=== PATIENT | male | born 1945 | race Caucasian/White ===

== ENCOUNTER 2018-06-03 11:32 | Inpatient (IN) | payer OTHER, MEDICARE ==
[~2018-06-03] VITALS: Ht 182.9 cm; Wt 127.0 kg
--- NOTE | 2018-06-03 14:59 | NUR ---
PATIENT HERE TODAY WITH HIS FOR PREADMISSION APPOINTMENT. HE IS SCHEDULED TO HAVE A LEFT TOTAL HIP ARTHROPLASTY DONE ON 06/14/18. HIS SAL[facility]AS WILL BE HERE TO TRANSPORT HIM HOME WHEN HE IS DISCHARGED. THEY HAVE ONE SMALL STEP INTO THE HOME AND ONE STEP INSIDE THE HOME. THERE IS A TUB/SHOWER WITH HAND HELD SHOWER HEAD. HE DOES NOT HAVE A FRONT WHEELED WALKER, SHOWER BENCH OR RAISED TOILET SEAT. WE SPOKE ABOUT THE REASONS HE WILL NEED THESE ITEMS AND THEY WILL LOOK INTO OBTAINING THEM BEFORE SURGERY. THEY LIVE IN [place] AND WOULD LIKE PHYSICAL THERAPY SET UP WITH [facility]. THIS INFORMATION WILL BE SENT TO DR COATS OFFICE AND CASE MANAGEMENT FOR FUTHER FOLLOW UP.
[2018-06-14] MEDS ORDERED: DICLOFENAC SODI75 MG PO (06:10)
[2018-06-14] MEDS ORDERED: CARBIDOPA-LEVO1 EAC1 PO (06:11)
[2018-06-14] MEDS ORDERED: ATORVASTATIN CA20 MG PO (06:11)
[2018-06-14] MEDS ORDERED: FUROSEMIDE20 MG PO (06:12)
[2018-06-14] MEDS ORDERED: AMANTADINE100 M1 PO (06:12)
[2018-06-14] MEDS ORDERED: VITAMIN C1000 M2 PO (06:13)
[2018-06-14] MEDS ORDERED: IRON325 M1 PO (06:13)
--- NOTE | 2018-06-14 10:34 | NUR ---
[facility] ARRIVED IN PACU AWAKE WITH NO C/O'S. ROSEY DRSG INTACT TO L HIP. ABDUCTOR PILLOW IN PLACE. ON-Q PUMP AT 6ML/HR PER DR ORDERS AND NO CLAMP PRESENT. 929 PELVIS XRAY DONE. 45 OXYGEN REMOVED. SATS 95% ON RA. ENCOURAGED COUGH, DEEP BREATHING. NO C/O'S. 1015 PT RESTING WITH NO C/O'S. CRYO CUFF TO L HIP. 1019 WILL HOLD PT IN PACU TILL ROOM AVAILABLE AND CHANGE TO PHASE II.
--- NOTE | 2018-06-14 11:15 | NUR ---
LE 1019 PT DC'D FROM PACU TO PHASE II. OXYGEN SATS DECREASED TO 88% ON RA. 02 AT 2L VIA NC PLACED WITH SATS INCREASING TO 95%. ENCOURAGED PT TO COUGH, DEEP BREATH. NO C/O'S. 1107 TO DS TO WAIT FOR ROOM.
--- NOTE | 2018-06-14 12:07 | NUR ---
PT ARRIVED FROM DAY SURGERY WITH IRINA NEWBY. PT WAS HELD IN DAY SURGERY WAITING FOR ROOMS TO BECOME AVAILABLE ON THE FLOOR. PT WAS AWAKE AND ALERT WITH HIS AT BEDSIDE. 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 PT REPORTS "BETTER PAIN THAN BEFORE SURGERY!" SENSATION IS INTACT ABOVE HIP, PT ABLE TO WIGGLE TOES ON BOTH FEET. PT HAS ONE SPOT THAT "FEELS LIKE FREZER BURN" UNDER CYRO-CUFF. WASHCLOTH APPLIED UNDER THE CUFF TO PROTECT THE SKIN. CYROCUFF, ON-Q SET TO 6, ROSEY DRESSING SEALED, JUSTIN HOSE IN PLACE, ABDUCTOR PILLOW IN PLACE. NO NAUSEA, PT IS EATING JELLO AT THIS TIME. TOLEATING WATER WELL.
--- NOTE | 2018-06-14 12:14 | OR ---
[facility] [address], [place] [address] Signed DATE OF OPERATION: 06/14/2018 SURGEON: Daev Song MD PREOPERATIVE DIAGNOSIS: Degenerative joint disease, left hip with avascular necrosis. POSTOPERATIVE DIAGNOSIS: Degenerative joint disease, left hip with avascular necrosis. PROCEDURE PERFORMED: Left total hip arthroplasty. IMAGING NURSE: JITENDRA Lynne ANESTHESIA: Spinal. BLOOD LOSS: 125 mL. IMPLANTS: [place] Accolate 2 size 8, 60 mm cup, and a +2.5 ceramic head. BRIEF HISTORY: Dick is a 73-year-old gentleman who had fairly sudden onset of severe pain. He had undergone intra-articular injection just prior to this. Repeat radiographs showed collapse of the femoral head. The risks and benefits of operative treatment were discussed with him. He elected to proceed. Once the consent was obtained, he was taken to the operating room. After adequate anesthesia was placed on the operating room table, all downside pressure points well padded. He was placed in right lateral decubitus position. Axillary roll was placed and the hip was prepped and draped in a standard sterile fashion. His hip was quite stiff as were both knees. The hip was approached through an anterior lateral approach. A 6 inch incision was carried through skin and subcutaneous tissue and the IT band was divided longitudinally. The vastus lateralis was split from the tip of the trochanter distally and elevated in a subperiosteal manner around the level of the lesser trochanter. The gluteus medius was split bluntly. Gluteus minimus and capsule were split sharply from the tip of the trochanter to the acetabular head were without it was. Because of the notching in the Electronically Signed By: DAVE SONG MD 06/14/18 1214 PATIENT NAME: NAOMI CURTIS OPERATIVE REPORT DATE OF : 49 REPORT #: [id number] PHYSICIAN: DAVE SONG MD PCP: KOMAL CAMEJO REPORT IS CONFIDENTIAL AND NOT TO BE RELEASED WITHOUT AUTHORIZATION [facility] [address] [place], [place] [address] Signed femoral head, it was a little difficult to tell for sure. The capsule on the anterior portion was then elevated off the femoral neck all the way around. Once this was completed, the hip was externally rotated. The femoral neck cut was made in situ one fingerbreadth above the lesser trochanter. Using the Schanz pin, the femoral head was then removed from the acetabulum. Periacetabular soft tissue was removed. The acetabulum was reamed starting with a 50 went up to 60. The 60 cup was found to be well fitting. It was impacted in position, 20 degrees of anteversion, 45 degrees of abduction. The two 6.5 mm screws were placed in the posterior superior quadrant. The liner was then impacted in position finally. The attention was then turned to proximal femur. The proximal femur was opened using the renettaie cutter followed by the long reamer. It was then sequentially broached up to an 8. First radiograph of the 8 showed that it was a little ill fitting. We then further rasped and broached until the 8 was well fitting and there was no motion in it. The trial reduction, the 2nd time showed excellent leg lengths, good stability with a standard offset neck and +2.5 mm head. These components were then selected and the stem was impacted until it was well-seated in the femur. The +2.5 ceramic head was then placed on it and hip was reduced taken through range of motion with 100 degrees of flexion with 25-30 of internal-external rotation. Leg lengths were found to be equal. The wound was copiously irrigated with antibiotic solution and Irrisept. The capsule was then closed using #1 Vicryl. The On-Q pump was placed in a supracapsular position under the vastus and gluteus layers. The vastus and IT band were closed in layers. The fat was closed in layer and the subcutaneous tissue in layer. The skin was closed using Dermabond mesh and he was placed in a ROSEY wound VAC dressing, awakened, and taken to the recovery room in satisfactory condition. All sponge, needle, and instrument counts were correct. He was placed in abduction brace. Dave Song MD BA/MODL /[id number] Copies: ~ Electronically Signed By: DAVE SONG MD 06/14/18 1214 PATIENT NAME: NAOMI CURTIS OPERATIVE REPORT DATE OF : 49 REPORT #: [id number] PHYSICIAN: DAVE SONG MD PCP: KOMAL CAMEJO REPORT IS CONFIDENTIAL AND NOT TO BE RELEASED WITHOUT AUTHORIZATION
--- NOTE | 2018-06-14 18:29 | NUR ---
PT S/P LEFT TOTAL HIP. PT UP TO WALK WITH PHYSICAL THERAPY, REQUIRED 2-3 HEAVY ASSIT WITH MULTIPLE REST BREAKS. PT STATED THAT HE HAD NO PAIN, HIS ARMS WERE "SO WEAK USING THE WALKER". PT WALKED AROUND THE BED WITH MULTIPLE REST BREAKS SITTING ON THE BSC NEEDED. PT REPORTED NO PAIN EVEN DURING THERAPY. SMALL AMT OF DRAINAGE NOTED ON ROSEY DRESSING AFTER PHYSICAL THERAPY, OUTLINED. PT ABLE TO WIGGLE TOES AND CMS IS INTACT. NO PAIN. NO NAUSEA, NO ITCHING. PT HAS SY, DRAINING CLEAR YELLOW URINE.
--- NOTE | 2018-06-14 19:10 | NUR ---
SHIFT REPORT RECIEVED. PATIENT RESTING IN BED WATCHING TV. DENIED PAIN AT THIS TIME. ROSEY DRESSING VISUALIZED, DRAINAGE WITHIN THE OUTLINE DRAWN BY DAY RN. MODERATE AMOUNT OVERALL. ROSEY PUMP AND ON-Q IN PLACE, GREEN LIGHT NOTED. CRYO IN PLACE WITH SUFFICENT ICE. IV FLUIDS INFUSING, SITE WNL. CALL LIGHT IN REACH.
--- NOTE | 2018-06-14 21:00 | NUR ---
SCHEDULED MEDS PROVIDED. PATIENT AAOX4. DENIES PAIN. LUNGS ARE CLEAR. ABD IS ROUND, FIRM, NONTENDER. DRESSING ON LEFT HIP INTACT, ROSEY HAS MODERATE AMOUNT OF DRAINAGE, ABOUT 60% OF DRESSING SATURATED. ROSEY FLASHING GREEN. ON-Q IN PLACE. CMS INTACT. JUSTIN HOSE, SCDS, ABDUCTOR PILLOW IN PLACE. PATIENT HAS SY, URINE OUTPUT QS. IV FLUIDS PER ORDER, SITE WNL. PATIENT TOLERATING REGULAR DIET AND SOME ORAL FLUIDS, ENCOURAGE ORAL INTAKE WHILE AWAKE. NO OTHER NEEDS AT THIS TIME. ALLLOWED TO REST. CALL LIGHT IN REACH.
--- NOTE | 2018-06-14 22:00 | NUR ---
IV TYLENOL PER ORDER. PATIENT CONTINUES TO DENY PAIN. PATIENT IS DROWSY AND ATTEMPTING TO SLEEP. FISHER NET IN ROOM FOR VS.
--- NOTE | 2018-06-14 23:08 | NUR ---
V/S AND I&O DONE AND CHARTED. CRYO CUFF AND ICE WATER REFILLED.
--- NOTE | 2018-06-14 23:35 | NUR ---
PT WITH EYES CLOSED, RESP EVEN AND UNLABORED. CPOX READING HR@68, O2 @94 ON ROOM AIR. ANCEF INFUSING PER ORDER. CALL LIGHT WITHIN REACH.
--- NOTE | 2018-06-15 02:27 | NUR ---
PATIENT PROVIDED WITH SCHEDULED MEDS. PATIENT APPEARS TO BE SLEEPING SOUNDLY. WOKE EASILY TO SOUND. PATIENT DENIES PAIN. IV FLUIDS PER ORDER. DRESSING APPEARS UNCHANGED. ROSEY LIGHT FLASHING GREEN. CMS INTACT. PATIENT DENIES FURTHER NEEDS. CALL LIGHT IN REACH.
--- NOTE | 2018-06-15 04:00 | NUR ---
PATIENT APPEARS TO BE SLEEPING SOUNDLY. RR 20. CALL LIGHT IN REACH.
--- NOTE | 2018-06-15 06:52 | NUR ---
NOTIFIED DR COATS OF PT LOW URINE OUTPUT, IV FLUIDS, CONTINUE SY CATH. FOR NOW.
--- NOTE | 2018-06-15 07:00 | NUR ---
BEDSIDE HANDOFF REPORT RECEIVED FROM SURGICAL PROCESSOR RN. PT RESTING IN BED. PT DENIES NEEDS AT THIS TIME.
--- NOTE | 2018-06-15 07:02 | NUR ---
PATIENT DENIES PAIN THIS MORNING. DISCUSSED NEED FOR SY TO BE LEFT IN PLACE. PATIENT VERBILIZED UNDERSTANDING. NO NEEDS AT THIS TIME.
--- NOTE | 2018-06-15 07:08 | NUR ---
PATIENT SLEPT WELL LAST NIGHT. CONTINUES TO DENIE PAIN. IV FLUIDS INFUSED THROUGH THE NIGHT. URINE OUTPUT MINIMAL, MD AWARE. ORDERS TO LEAVE SY AT THIS TIME. PATIENT OUT OF BED WITH PT YESTERDAY BUT NOT THIS SHIFT. LUNGS ARE CLEAR. NO NAUSEA. TOLERATING DIET. JUSTIN BLAIR, KARTIK, HEEL PROTECTORS AND ABDUCTOR PILLOW IN PLACE.
--- NOTE | 2018-06-15 09:45 | NUR ---
PT WORKING WITH P.T., ASSISTED TO CHAIR. PT RATING PAIN 1/10, GIVEN SCHEDULED MEDICATIONS. PT ON ROOM AIR, LUNG SOUNDS CLEAR. PT DENIES NAUSEA, TOLERATING REGULAR DIET, BOWEL TONES ACTIVE. PT CMS INTACT, DENIES NUMBNESS/TINGLING. JUSTIN HOSE IN PLACE. PT WITH 1+ EDEMA TO BLE. PT WITH DRESSING TO LEFT HIP, MODERATE AMOUNT OF STAURATION TO ROSEY DRESSING. ON Q PUMP IN PLACE, SET TO 6ML/HR. IV FLUIDS INFUSIN D5NS +20k AT 125 ML/HR. SY IN PLACE DRAINING ORANGE URINE. DISCUSSED PLAN OF CARE FOR THE DAY. PT DENIES OTHER NEEDS AT THIS TIME.
--- NOTE | 2018-06-15 12:50 | NUR ---
PT SITTING IN CHAIR. PT DENIES PAIN. PT ON ROOM JAYY, LUNG SOUNDS CLEAR. TOLERATING REGULAR DIET. ROSEY DRESSING WITH MORE SANGUINOUS DRAINAGE TO DISTAL PORTION, VACUUM WORKING WITH GREEN LIGHT. ONQ PUMP CONTINUES TO BE SET AT 6 ML/HR. PT WITH TRACE EDEMA TO BLE. SY DRAINING QS. PT DENIES OTHER NEEDS AT THIS TIME.
--- NOTE | 2018-06-15 16:04 | NUR ---
PT WORKING WITH Letty
--- NOTE | 2018-06-15 16:18 | NUR ---
PT WITH QS URINE OUTPUT, DISCUSSED IV FLUIDS WITH DR. ZEE, ASKED TO CALL DR. COATS REGARDING IV FLUIDS. DR COATS CALLED, MESSAGE LEFT.
--- NOTE | 2018-06-15 16:54 | NUR ---
DR. COATS RETURNED CALL, DISCUSSED URINE OUTPUT, VERBAL ORDER TO SALINE LOCK AND REMOVE SY. COMPLETED. AFTERNOON ASSESSMENT COMPLETED, NO ACUTE CHANGES. PT SITTING IN CHAIR FOR DINNER. PT DENIES OTHER NEEDS AT THIS TIME.
--- NOTE | 2018-06-15 17:37 | NUR ---
PT ON ROOM AIR, LUNG SOUNDS CLEAR. PT TOLERATING REGULAR DIET, BOWEL TONEA ACTIVE. PT WORKED WITH P.T./O.T., WALKED IN LIN AND COMPLETED STAIRS. PT WITH ROSEY DRESSING, MODERSTAE DRAINAGE, VACUUM WORKING WELL. ONQ PUMP SET TO 6 ML/HR. PT WITH INCREASED URINE OUTPUT, SY DC AT 1645, NOW SALINE LOCKED. PT DENIES PAIN, SCHEDULED TYLENOL, TORADOL, CELEBREX AND GABAPENTIN.
--- NOTE | 2018-06-15 18:57 | NUR ---
MED REC COMPLETE
--- NOTE | 2018-06-15 21:00 | NUR ---
PATIENT ASSISTED TO THE BATHROOM AND BACK INTO BED 1PA WITH FWW. PATIENT NOT HAVING ANY PAIN. CALL LIGHT IN REACH.
--- NOTE | 2018-06-15 22:55 | NUR ---
ASSISTED PT BACK TO BED FROM SITTING ON EDGE. HAD USED THE URINAL WITH ASSIST OF ANOTHER STAFF PERSON. NEEDED HELP PUTTING LEFT LEG INTO BED, BUT ONCE IN BED, HE WAS ABLE TO READJUST SELF IN BED, USING THE TRAPEZE WITH ASSIST WITH HIS LEFT LEG. PT REQUESTED TO LEAVE HIS HEEL PROTECTORS OFF, AND WILL REASSESS PUTTING BACK ON, PT HAS BEEN UP TO VOID EVERY HOUR SINCE SHIFT STARTED. CRYO IN PLACE, SCD'S IN PLACE. PERSONAL SUPPLIES, AND CALL LIGHT WITHIN REACH.
--- NOTE | 2018-06-16 00:55 | NUR ---
PT BACK INTO BED FROM USING URINAL WITH ASSIST OF PATIENT CARRIER, REQUESTED PAIN MED FOR LEFT GROIN PAIN, STATES PAIN IS DULL. NOT A NEW PAIN, HE HAS HAD IT WHEN HE GETS BACK TO BED FROM WALKING WELL. MED WITH PRN PAIN MED. DENIES FURTHER NEEDS.
--- NOTE | 2018-06-16 01:00 | NUR ---
PATIENT IN BED WATCHING TV AND NIELSON NO OTHER NEEDS AT THIS TIME.
--- NOTE | 2018-06-16 03:00 | NUR ---
PATIENT JUST GOT HIS AM TORADOL, BUT IS HAVING NO PAIN NOW. PATIENT IS JUST SITTING IN BED WATCHING TV WITH NO NEEDS AT THIS TIME.
--- NOTE | 2018-06-16 05:00 | NUR ---
PATIENT HAD AN OK NIGHT FAR PAIN. IT WAS EASILY CONTROLLED WITH ON-Q AND ROSEY DRESSING, BUT HE ONLY CAT NAPPED, HE DID NOT SLEEP VERY MUCH AND HE HAD TO STAND AT THE BEDSIDE MANY TIMES TO URINATE AND WALKED TO THE BATHROOM ONCE. TAKIING PO FLUIDS WELL, USING WEDGE,TEDS,SCD'S, AND ANKLE PROTECTORS. VS HAVE BEEN GOOOD AND PATIENT IN A GOOD MOOD THIS AM. THE ROSEY DRESSING ON THE HIP HAS DRIED BLOOD ON IT, BUT IT IS NOT ACTIVELY BLEEDING.
[2018-06-16] MEDS ORDERED: CELECOXIB200 MG PO (06:53)
[2018-06-16] MEDS ORDERED: OXYCODONE HCL5 MG PO (06:53)
[2018-06-16] MEDS ORDERED: GABAPENTIN300 MG PO (06:53)
[2018-06-16] MEDS ORDERED: SENNA LAX8.6 MG PO (06:54)
[2018-06-16] MEDS ORDERED: ASPIRIN EC325 MG PO (06:54)
--- NOTE | 2018-06-16 07:20 | NUR ---
BEDSIDE HANDOFF REPORT RECEIVED FROM DIETARY INTERNSHIP RN. PT RESTING IN BED. PT ASKING ABOUT DISCHARGE PLAN, DISCUSSED WITH PT. PT DENIES OTHER NEEDS AT THIS TIME.
--- NOTE | 2018-06-16 08:40 | NUR ---
PT RESTING IN BED. PT DENIES PAIN. PT ON ROOM AIR, LUNG SOUNDS CLEAR, DENIES SOB. PT DENIES NAUSEA, BOWEL TONES ACTIVE, TOLERATING REGULAR DIET. PT WITH ROSEY DRESSING TO LEFT HIP, VACUUM FUNCTIONING PROPERLY, DRAINAGE UNCHANGED FROM YESTERDAY. ONQ PUMP SET TO 6 ML/HR. CMS INTACT, WIHTOUT EDEMA. PT WIHT SCDS, JUSTIN HOSE IN PLACE. PT PLANNING TO DISCHARGE TODAY, DISCUSSED WITH PT. PT DENIES OTHER NEEDS AT THIS TIME.
--- NOTE | 2018-06-16 11:10 | NUR ---
PT INSTRUCTED TO FOLLOW HIP PRECAUTIONS AND SENT HOME WITH HIP WEDGE.
--- NOTE | 2018-06-16 13:45 | NUR ---
PT SITTING ON SIDE OF BE-DRESSED AND WAITING FOR HIS TO COME AND PICK HIM UP. PT EXPRESSED SEVERAL TIMES WHAT A GREAT EXPERIENCE HE HAD HERE AT [facility] AND WILL BE BACK FOR ANY FURTHER CARE HE NEEDS.EXTENDED A BLESSING, WILL CON- TINUE TO FOLLOW NEEDED
== END 2018-06-16 11:11 | disposition home or self-care (01) | DRG 470 ==
LOC: MS 06-14 05:30 → DSVR 06-14 05:30 → MS 06-14 06:45
PROVIDERS: ADMIT Specialist
PROC: 0SRB04Z Replacement of Left Hip Joint with Ceramic on Polyethylene Synthetic Substitute, Open Approach (ICD-10-PCS; principal; 2018-06-14 06:45)
DX: M16.12 Unilateral primary osteoarthritis, left hip (principal); M87.852 Other osteonecrosis, left femur; G89.18 Other acute postprocedural pain; M06.9 Rheumatoid arthritis, unspecified; G20 Parkinson's disease; E78.5 Hyperlipidemia, unspecified; M79.89 Other specified soft tissue disorders; G89.29 Other chronic pain; E66.01 Morbid (severe) obesity due to excess calories; Z68.37 Body mass index [BMI] 37.0-37.9, adult; Z87.891 Personal history of nicotine dependence; Z79.1 Long term (current) use of non-steroidal anti-inflammatories (NSAID); Z79.899 Other long term (current) drug therapy
CPT/HCPCS: 01214; 36415; 64447; 72170; 73501; 76942; 80048; 85025; 94762; 97110; 97116; 97162; C1776; J0131; J0690; J0735; J1100; J1885; J2250; J2405; J2704; J2765; J2795; J3010; J7040; J7120